=== PATIENT | male | born 1940 | race Caucasian/White ===

== ENCOUNTER 2017-03-22 10:55 | Inpatient (IN) | payer MEDICARE, BC ==
--- NOTE | 2017-03-21 15:53 | PREOPHP ---
DATE OF ADMISSION: 03/22/2017 Patient to have surgery with Dr. Alexandre Birmingham at [facility] on 03/22/2017. CONSULTATION REQUESTED BY: Dr. Birmingham for medical evaluation and clearance of a 76-year-old medhat sanchez about to undergo surgery. Thank you, Dr. Birmingham, for allowing us to participate in the care of this patient. HISTORY OF PRESENT ILLNESS: Benoit Parra, a 76-year-old gentleman with history of back iss ues for a while, is currently being admitted for correction of the above. In terms of his past medi kwabena and surgical history, medically speaking, had prostate cancer which was treated with radiation. Surgically had inguinal hernias bilateral right and left repairs, carpal tunnel surgery right and l eft wrists as well as a [id number] surgery. He has had no other medical hospitalizations, no ot her surgeries. Has not broken any big bones. MEDICATIONS: He is currently taking the following medications: 1. Metoprolol ER 25 mg a day. 2. Flomax 0.4 mg a day. 3. Gabapentin 300 mg at bedtime. 4. Celexa 20 mg a day. 5. Baby Aspirin 81 mg daily, which he stopped a week before this surgery. ALLERGIES: HE IS NOT ALLERGIC TO ANY MEDICATIONS. SOCIAL HISTORY: The patient is , has 2 daughters and 4 grandchildren. He does not smoke or drink alcohol or coffee. Has no difficulty sleeping at night. 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 FAMILY HISTORY: Both parents are . Father at age 65 of a stroke, had hypertension. M other at age 80, unknown specific cause. There is a family history of cancer, hypertension, stroke, as well as kidney issues. REVIEW OF SYSTEMS HEENT: Periodic tension headaches. CARDIORESPIRATORY: Denies any chest pain or shortness of breath. GASTROINTESTINAL: No melena or hematemesis. GENITOURINARY: No urgency, frequency. MUSCULOSKELETAL: Positive for back issues. NEUROPSYCHIATRIC: Unremarkable. GENERAL HEALTH: As above. PHYSICAL EXAMINATION: VITAL SIGNS: The patient's blood pressure was 120/70, pulse was 63 and regular, respirations were 1 8, temperature 97.9, height 5 feet 5 inches, weight 129 pounds. GENERAL: The patient was noted to be a well-developed, well-nourished male, alert and cooperative, in no apparent acute distress, oriented to time, place and person. HEAD, EARS, EYES, NOSE AND THROAT: Head was atraumatic. Eyes: Pupils were equal, reactive to ligh t and accommodation. Fundi were benign. Tympanic membranes were unremarkable. Nose was negative. Mouth was unremarkable. Fair oral hygiene was present. NECK: Supple without any rigidity. Trachea was midline. Thyroid was within normal limits. Neck v eins were flat. Carotid pulses were equal. No bruits were heard. BACK: Unremarkable. CHEST: Symmetrical. BREASTS AND AXILLARY: Did not reveal any masses. LUNGS: Clear to percussion and auscultation. HEART: PMI is fifth intercostal space at the midclavicular line. Regular sinus rhythm was noted. No significant murmurs, rubs or gallops being elicited. ABDOMEN: Soft, good bowel sounds were noted. No significant organomegaly, masses, or tenderness. Scars from prior surgery were noted. GENITALIA: Normal male uncircumcised external genitalia. RECTAL AND PROSTATIC: Exam up to date per PCP. EXTREMITIES: Did not reveal any clubbing, edema or cyanosis. Peripheral pulses were physiologic. SKIN: Moist and warm without any eruptions. No gross lymphadenopathy was noted. NEUROLOGIC: Grossly intact. IMPRESSION 1. Lumbar disk disease particularly L4-L5. 2. Hypertension. 3. Prostate cancer, status post radiation therapy. 4. Chronic pain syndrome. 5. Stable health. DISCUSSION: Review of laboratory and other data revealed the following: The patient's chemistry pa todd including electrolytes, creatinine, liver function test, magnesium and calcium were normal. CO2 was at 34, minimally elevated, random glucose 108, BUN 24, probably because patient had not drank e nough fluid. CBC, UA, PT and PTT were basically normal. The patient's EKG revealed extensive ST-T wave changes as well as a sinus bradycardia, question of ischemia. The patient is under the care of a dresser tender and we are awaiting cardiac clearance on him or a note from his dresser tender. The p atient's chest x-ray was normal as well without any acute infiltrates or acute cardiopulmonary banda es being noted. His bladder residual was 100+ mL, for which he takes Flomax and probably secondary to swelling of his prostate post-radiation therapy for his prostate cancer. Dr. Birmingham, I see no contraindication in this patient undergoing current proposed surgery under d esired form of anesthesia. I feel he is a suitable candidate at this particular point in time. Jyoti uld any medical problems arise during his stay at [facility], we will be more than happy to follow him up at the appropriate times. Thank you again, Dr. Birmingham, for allowing us to participate in the care of this patient. Dictated By: JUMANA ROGER/HAROLDO Conf#: [id number] DID#: [id number]
[2017-03-22] VITALS (22 sets, daily range): BP systolic 114–146; BP diastolic 60–90; PULSE 55–88; RESP 16–21; Ht 165.1 cm; Wt 52.2 kg
[~2017-03-22] VITALS: Ht 165.1 cm; Wt 52.2 kg
[~2017-03-22 10:55] MED LIST: ALBUMIN HUMAN 5% 250 ML INJ ONE; ATROPINE 1 MG/10 ML SYRINGE IV PRN; DIPHENHYDRAMINE 50 MG INJ IV PRN; EPHEDrine SULFATE 50 MG/5 ML SYG IV PRN; FENTAnyl 50 MCG/ML VIAL IV PRN; HYDROmorphONE (0.2 MG/ML) 10ML SYG IV PRN; LABETALOL HCL 20MG INJ IV PRN; MEPERIDINE 25 MG INJ IV PRN; MIDAZOLAM 1 MG/ML 2 ML INJ IV PRN; ONDANSETRON 4 MG INJ IV PRN; OXYCODONE/ACETAMINOPHEN (5/325) TAB PO PRN; hydrALAzine 20 MG INJ IV PRN; morphine (1 MG/ML) 10ML SYRINGE IV PRN
[2017-03-22] MEDS ORDERED: METO-335 PO (11:23)
[2017-03-22] MEDS ORDERED: CITA20TA11 PO (11:24)
[2017-03-22] MEDS ORDERED: TAMS-14 PO (11:24)
[2017-03-22] MEDS ORDERED: ASPI-664 PO (11:25)
--- NOTE | 2017-03-22 11:38 | HPN ---
Date/Time of Note Date/Time of Note DATE: 03/22/17 TIME: 11:38 Interval H&P Admission Note Pt. seen H&P reviewed: No system changes JEAN-PIERRE SHERMAN MD Mar 22, 2017 11:38
[2017-03-22] MEDS ORDERED: BETAMET NA PHOS/AC(6 MG/ML) 5ML INJ ONE (11:53)
[2017-03-22] MEDS ORDERED: POLYMYXIN/BACITRACIN 1L IRRIG ONE (11:53)
[2017-03-22] MEDS ORDERED: GELATIN SIZE 100 SPONGE ONE (11:53)
[2017-03-22] MEDS ORDERED: THROMBIN 5000 UNIT VIAL ONE (11:53)
[2017-03-22] MEDS ORDERED: BUPIVACAINE 0.25%/EPI (SDV) 30 ML INJ ONE (11:53)
--- NOTE | 2017-03-22 11:57 | OPR ---
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 Left sided L4-5 partial laminectomy, medial facetectomy, and foraminotomy 2. Durotomy repair SURGEON: Jean-Pierre Sherman MD ANESTHESIA: General endotracheal ESTIMATED BLOOD LOSS: Minimal SURGICAL INDICATION: The patient is a 76 year-old male who presents with an increasing history of left lower extremity pain with weakness. The patient was unable to ambulate significant distances secondary to their pain and left lower extremity weakness. The patient had failed conservative treatment. Risks, benefits, and alternatives to a decompressive procedure including but not exclusive of risks of bleeding, infection, nerve injury, cauda equina syndrome, iatrogenic instability requiring future fusion, dural tear, myocardial infarction, stroke, pulmonary embolism were explained to the patient, and he wished to proceed. DESCRIPTION OF TECHNIQUE: The patient was identified in the preoperative area and taken to the operating room. Rapid induction of general endotracheal anesthesia was performed. Patient was given 2 g of cefazolin for prophylaxis. The patient was then placed in the prone position on the Jose Guadalupe frame on a Earle table with all bony prominences well padded. The back was prepped and draped in usual sterile manner. Using a spinal needle and intraoperative fluoroscopy, the L4-5 level was clearly identified. The skin was injected using 0.25% Marcaine with epinephrine. Longitudinal midline incision was then created using a 10 blade. Further dissection through soft tissue was performed using electrocautery down to the left L4 spinous processes. Dissection was taken down the left side of the lamina and over the facet joint capsule. A self-retaining retractor was applied. Again, intraoperative fluoroscopy confirmed the level. The microscope was brought into use for microdissection. The high-speed bur was used to thin the caudal aspect of the left L4 lamina. Kerrison rongeurs were then used to resect a small portion of the lamina, the medial facet and the bone overlying the foramen. Ligamentum flavum was also resected using the Kerrison rongeurs. Care was taken to protect the thecal sac throughout the decompressive procedure. Upon meticulous dissection a durotomy measuring 1-2 mm was noted. The dura was noted to be adherent to the ligamentum and facet capsule. This was repaired using 4-0 neurolon in a running locking fashion. A valsalva at 40 mmHg was performed and did not show any persistent leak. Palpation with a ball-tip probe did not reveal any further stenosis in the central, subarticular, or foraminal areas. The exiting left L4 nerve root and traversing L5 nerve roots were both directly visualized and noted to be decompressed. The cephalad and caudad extent of the decompression were also confirmed using ball-tip probes and intraoperative fluoroscopy. The wound was irrigated copiously using normal saline. Meticulous attention was paid toward hemostasis using bipolar cautery, FloSeal, Gelfoam and thrombin. Care was taken to remove all FloSeal and Gelfoam and thrombin prior to wound closure. A dural patch and durocele were also applied prior to closure in the area of the repaired durotomy.The fascia was then closed using 1 Vicryl in interrupted fashion. Subcutaneous tissue was closed using 2-0 Vicryl in interrupted fashion. Skin was closed using a running 4-0 Monocryl stitch. The wound was dressed using Dermabond, sterile 4x4 gauze and Tegaderm. The patient was returned to the supine position. They were extubated immediately postoperatively and taken to the recovery room in stable condition. Complications: Durotomy Procedure Date: Mar 22, 2017 Preoperative Diagnosis POSTOPERATIVE DIAGNOSES: L4-5 grade 1 degenerative spondylolisthesis with Left greater than right spinal stenosis with Left L5 radiculopathy Postoperative Diagnosis POSTOPERATIVE DIAGNOSES: L4-5 grade 1 degenerative spondylolisthesis with Left greater than right spinal stenosis with Left L5 radiculopathy Operation/Procedure Performed 1. Left sided L4-5 partial laminectomy, medial facetectomy, and foraminotomy 2. Durotomy repair Surgeon see signature line Web Design Instructor None Anesthesia Type: general Estimated Blood Loss: none Transfusion none Specimen none Grafts/Implants none Complications none Pt Condition Post Procedure: stable Disposition: PACU Procedure Description The patient was identified in the preoperative area and taken to the operating room. Rapid induction of general endotracheal anesthesia was performed. Patient was given 2 g of cefazolin for prophylaxis. The patient was then placed in the prone position on the Jose Guadalupe frame on a Earle table with all bony prominences well padded. The back was prepped and draped in usual sterile manner. Using a spinal needle and intraoperative fluoroscopy, the L4-5 level was clearly identified. The skin was injected using 0.25% Marcaine with epinephrine. Longitudinal midline incision was then created using a 10 blade. Further dissection through soft tissue was performed using electrocautery down to the left L4 spinous processes. Dissection was taken down the left side of the lamina and over the facet joint capsule. A self-retaining retractor was applied. Again, intraoperative fluoroscopy confirmed the level. The microscope was brought into use for microdissection. The high-speed bur was used to thin the caudal aspect of the left L4 lamina. Kerrison rongeurs were then used to resect a small portion of the lamina, the medial facet and the bone overlying the foramen. Ligamentum flavum was also resected using the Kerrison rongeurs. Care was taken to protect the thecal sac throughout the decompressive procedure. Upon meticulous dissection a durotomy measuring 1-2 mm was noted. The dura was noted to be adherent to the ligamentum and facet capsule. This was repaired using 4-0 neurolon in a running locking fashion. A valsalva at 40 mmHg was performed and did not show any persistent leak. Palpation with a ball-tip probe did not reveal any further stenosis in the central, subarticular, or foraminal areas. The exiting left L4 nerve root and traversing L5 nerve roots were both directly visualized and noted to be decompressed. The cephalad and caudad extent of the decompression were also confirmed using ball-tip probes and intraoperative fluoroscopy. The wound was irrigated copiously using normal saline. Meticulous attention was paid toward hemostasis using bipolar cautery, FloSeal, Gelfoam and thrombin. Care was taken to remove all FloSeal and Gelfoam and thrombin prior to wound closure. A dural patch and durocele were also applied prior to closure in the area of the repaired durotomy.The fascia was then closed using 1 Vicryl in interrupted fashion. Subcutaneous tissue was closed using 2-0 Vicryl in interrupted fashion. Skin was closed using a running 4-0 Monocryl stitch. The wound was dressed using Dermabond, sterile 4x4 gauze and Tegaderm. The patient was returned to the supine position. They were extubated immediately postoperatively and taken to the recovery room in stable condition. JEAN-PIERRE SHERMAN MD Mar 22, 2017 11:57
[2017-03-22] MEDS ORDERED: GLYCOPYRROLATE 0.4 MG INJ ONE (12:12)
[2017-03-22] MEDS ORDERED: NEOSTIGMINE 3 MG/3 ML SYRINGE ONE (12:12)
[2017-03-22] MEDS ORDERED: PROPOFOL 20 ML ONE (12:12)
[2017-03-22] MEDS ORDERED: CEFAZOLIN 1 GM INJ ONE (12:12)
[2017-03-22] MEDS ORDERED: ROCURONIUM 50 MG INJ ONE (12:12)
[2017-03-22] MEDS ORDERED: ONDANSETRON 4 MG INJ ONE (12:13)
[2017-03-22] MEDS ORDERED: DEXAMETHASONE 4 MG/ML 1 ML INJ ONE (12:13)
[2017-03-22] MEDS ORDERED: MIDAZOLAM 1 MG/ML 2 ML INJ ONE (12:13)
[2017-03-22] MEDS ORDERED: MIDAZOLAM 1 MG/ML 2 ML INJ IV PRN (13:30)
[2017-03-22] MEDS ORDERED: TRIMETHOBENZAMIDE 100 MG/ML VIAL IM PRN (13:30)
[2017-03-22] MEDS ORDERED: OXYCODONE/ACETAMINOPHEN (5/325) TAB PO PRN ×2 (13:30)
[2017-03-22] MEDS ORDERED: IPRATROPIUM (NEB) 0.5 MG/2.5 ML AMP HHN PRN (13:30)
[2017-03-22] MEDS ORDERED: DIPHENHYDRAMINE 50 MG INJ IV PRN (13:30)
[2017-03-22] MEDS ORDERED: hydrALAzine 20 MG INJ IV PRN (13:30)
[2017-03-22] MEDS ORDERED: MEPERIDINE 25 MG INJ IV PRN (13:30)
[2017-03-22] MEDS ORDERED: FENTAnyl 50 MCG/ML VIAL IV PRN ×3 (13:30)
[2017-03-22] MEDS ORDERED: LABETALOL HCL 20MG INJ IV PRN (13:30)
[2017-03-22] MEDS ORDERED: ALBUTEROL 0.083% (NEB) 2.5 MG/3 ML AMP HHN PRN (13:30)
[2017-03-22] MEDS ORDERED: ONDANSETRON 4 MG INJ IV PRN ×2 (13:30→16:30)
[2017-03-22] MEDS ORDERED: EPHEDrine SULFATE 50 MG/5 ML SYG IV PRN (13:30)
[2017-03-22] MEDS ORDERED: HYDROmorphONE (0.2 MG/ML) 10ML SYG IV PRN ×3 (13:30)
[2017-03-22] MEDS ORDERED: THROMBIN(HUM PLAS)/FIBRINOG/CA 5 ML VIAL TOP ONE (13:58)
--- NOTE | 2017-03-22 16:01 | RADRPT ---
PROCEDURE: Intraoperative imaging of the lumbar spine with fluoroscopy. CLINICAL INDICATION: Back pain. Intraoperative. TECHNIQUE: 3 images of the lumbar spine were obtained in the operating room with an image intensif ier. No radiologist was in attendance. Fluoroscopy time is 8 seconds. COMPARISON: No prior study is available for comparison. FINDINGS: For the purposes of this report, the last apparent true disc level is considered to be L5-S1. Based on this, posterior surgical instruments are present at the lower L4 level and upper L5 level. IMPRESSION: 1. Intraoperative imaging of the lumbar spine. RPTAT: QQ .Familia Wong MD, MD Date Time Electronically viewed and signed by .Familia Wong MD, on 03/22/2017 16:01 .R/
[2017-03-22] MEDS ORDERED: NACL 0.9% 3 ML SYG IV SCH (16:30)
[2017-03-22] MEDS ORDERED: PROCHLORPERAZINE 10 MG TAB PO PRN (16:30)
[2017-03-22] MEDS ORDERED: NALOXONE (0.4 MG/ML) INJ IV PRN (16:30)
[2017-03-22] MEDS ORDERED: ACETAMINOPHEN 325 MG TAB PO PRN (16:30)
[2017-03-22] MEDS ORDERED: LACTATED RINGER'S 1,000 ML IV ONE (17:30)
--- NOTE | 2017-03-22 17:32 | CONS ---
Date/Time of Note Date/Time of Note DATE: 03/22/17 TIME: 17:24 Consult Date/Type/Reason Admit Date/Time 03/22/2017 Initial Consult Date 03/19/2017 Type of Consultation: internal medicine consult Reason for Consultation pre-op medical clearance and evaluation. Ordering Provider: JEAN-PIERRE SHERMAN MD Subjective alert in recovery room no complaints Objective Vital Signs Date Time Temp Pulse Resp B/P Pulse Ox O2 Delivery O2 Flow Rate FiO2 03/22/17 16:39 98.2 03/22/17 11:51 55 16 128/76 97 Room Air Exam vss stable heent negative lungs cleat heart regulkar rhythm Results/Medications Medications Current Medications Cefazolin Sodium (Ancef 1 Gm/50 ml (Pmx)) 50 ml @ 100 mls/hr Q6 IVPB ; Start 03/22/17 at 18:00; Stop 03/23/17 at 12:29; Status UNV Prochlorperazine (Compazine) 10 mg Q4H PRN PO NAUSEA AND/OR VOMITING; Start at 16:30; Status UNV Ondansetron HCl (Zofran Inj) 4 mg Q6H PRN IV NAUSEA AND/OR VOMITING; Start at 16:30; Status UNV Acetaminophen (Tylenol Tab) 650 mg Q4H PRN PO TEMP GREATER THAN 101F OR ARTIS; Start 03/22/17 at 16:30; Status UNV Naloxone HCl (Narcan) 0.2 mg Q2M PRN IV RR 8 BREATHS/MIN OR LESS; Start at 16:30; Status UNV Morphine Sulfate (morphine) 1 mg Q4H PRN IV PAIN LEVEL 8-10; Start 03/22/17 at 16:30; Status UNV Citalopram Hydrobromide (Celexa) 20 mg DAILY PO ; Start 03/23/17 at 09:00; Status UNV Metoprolol Succinate (Toprol Xl) 25 mg DAILY PO ; Start 03/23/17 at 09:00; Status UNV Tamsulosin HCl (Flomax) 0.4 mg DAILY PO ; Start 03/23/17 at 09:00; Status UNV Assessment/Plan Chief Complaint/Hosp Course post op question urinary output urine looks clear non concentrated Problems: Additional Assessment/Plan plan reorder pre op medicines---2)fluid challenge lactated ringers 3)renal consult 4)chem 7 and cbc after 500 cc of fluid JUMANA DODD MD Mar 22, 2017 17:32
[2017-03-22] MEDS: CEFAZOLIN 1 GM/50 ML (PMX) 50 ML IVPB SCH (18:00)
[2017-03-22] MEDS ORDERED: CEFAZOLIN 1 GM/50 ML (PMX) 50 ML IVPB ONE (18:15)
[2017-03-22 19:31] LABS: ALBUMIN 2.9 g/dl (3.3-4.9); ALBUMIN/GLOBULIN RATIO 1.2; CALCIUM 8.4 mg/dl (8.4-10.2); POTASSIUM 3.7 mmol/L (3.5-5.1); TOTAL PROTEIN 5.3 g/dl (6.1-8.1)
[2017-03-22 19:37] LABS: ABNORMAL IP MESSAGE 1; HEMATOCRIT 36.1 % (42.0-52.0); HEMOGLOBIN 12.7 g/dl (14.0-18.0); MEAN CORPUSCULAR HEMOGLOBIN 32.4 pg (29.0-33.0); MEAN CORPUSCULAR HGB CONC 35.2 g/dl (32.0-37.0); MEAN CORPUSCULAR VOLUME 92.1 fl (82.0-101.0); MEAN PLATELET VOLUME 9.1 fl (7.4-10.4); PLATELET COUNT 170 10^3/UL (140-415); POSITIVE DIFF @See below; RED BLOOD COUNT 3.92 10^6/ul (4.70-6.10); RED CELL DISTRIBUTION WIDTH 13.3 % (11.5-14.5); WHITE BLOOD COUNT 10.8 10^3/ul (4.8-10.8)
--- NOTE | 2017-03-22 20:24 | CONS ---
DATE OF ADMISSION: 03/22/2017 DATE OF CONSULTATION: RENAL CONSULTATION Thank you, Dr. Sherman and Dr. Banks, for asking me to participate in medical management of this patient. REASON FOR CONSULTATION: Low urine output. HISTORY OF PRESENT ILLNESS: This 76-year-old man is now postop a lumbar spine surgery by Dr. Sherman. The patient was having low back pain radiating to his left lower extremity preoperatively. He underwent a left-sided L4-5 partial laminectomy, medial facetectomy and foraminotomy. He also underwent a durotomy repair. The patient is now awake and alert. He denies any chest pain or shortness of breath. The patient does feel like he has a full bladder, although he does have a Granado catheter in place. The patient, in the recovery room, had a bladder scan done and had 65 mL of urine in his bladder. He now has 386 mL of urine in his bladder. He has a Granado catheter in place; however, it is not draining urine. The patient does have a history of prostate cancer and was treated with radiation January 2016 . The patient was seen preoperatively by Dr. Banks and cleared for surgery. The patient did have one episode of low blood pressure during surgery, but this was transient. The patient was given fluid and responded well. The patient has been given 2 liters of IV fluid in the recovery room and is getting another liter now on the surgical floor. CURRENT MEDICATIONS: The patient is on the following medications: 1. Metoprolol ER 25 mg a day. 2. Flomax 0.4 mg a day. 3. Gabapentin 300 mg at bedtime. 4. Celexa 20 mg a day. 5. Baby aspirin 81 mg a day, which was discontinued a week preoperatively. PAST MEDICAL HISTORY: 1. Hypertension 2 Prostate cancer s/p radiation therapy PAST SURGICAL HISTORY; 1. Bilateral inguinal hernia repair 2. Bilateral carpal tunnel syndrome repair 3. Fistula in ano surgery ALLERGIES: THE PATIENT HAS NO KNOWN MEDICATION ALLERGIES. SOCIAL HISTORY: He is . He has 2 daughters and 4 grandchildren. He does not smoke or drink alcohol. 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 FAMILY HISTORY: Both parents are . Father at age 65 of a stroke and he had hypertension. Mother at age 80 of unknown causes. There is a family history of cancer, hypertension, stroke, as well as kidney disease. PHYSICAL EXAMINATION: VITAL SIGNS: Temperature of 98.2, pulse of 85, respirations 18, blood pressure 135/90, O2 saturation 100% on 2 liters nasal cannula. HEAD: Normocephalic. EYES: Extraocular muscles intact. NOSE AND MOUTH: Normal. NECK: Supple. No neck vein distention. LUNGS: Clear to auscultation. HEART: Regular rhythm. No murmurs, gallops or rubs. ABDOMEN: Soft. There is some distention in the pelvic area consistent with a dilated urinary bladder EXTREMITIES: He has no lower extremity edema. LABORATORY DATA: The patient's laboratory test preoperatively showed a BUN of 24, serum creatinine of 1.2. CBC was normal. IMPRESSION: This patient presents now after surgery with a low urine output. He has a distended urinary bladder, despite having a Granado catheter. I recommended to the nurse that he try to place a larger bore Granado catheter. They will attempt to do that now. The patient has no prior history of kidney disease and the fact that he has a distended bladder is consistent with normal kidney function, but urinary obstruction causing the low urine output. The patient is otherwise comfortable without any other chest pain, shortness of breath. PLAN: 1. Try to place a larger bore Granado catheter. 2. Resume preoperative medications.Check labs in the morning . 3. Call urology consultation if unable to place Granado catheter. 4. I will follow patient along with you. Dictated By: GURVINDER GÓMEZ MD, ND/HAROLDO Conf#: [id number] DID#: [id number] CC: JEAN-PIERRE SHERMAN MD; [facility];*[facility]* [facility]
[2017-03-22 20:34] LABS: MONOCYTES % (M) 5 % (0-11); PLATELET ESTIMATE NORMAL
--- NOTE | 2017-03-22 21:52 | CONS ---
Date/Time of Note Date/Time of Note DATE: 03/22/17 TIME: 21:39 Assessment/Plan Assessment/Plan Chief Complaint/Hosp Course 76-year-old male is known to have a history of prostate cancer and is status post radiation therapy. He underwent lumbar laminectomy yesterday and had a small size Granado catheter 10 [place] in size which was not draining well. Most likely it was even not reaching the bladder. It was removed today and when he did urinate he had a high postvoid residual of over 300 mL. The nursing staff try to do straight cath for him unsuccessfully therefore a urological consultation was requested. I tried to insert a 16 [place] catheter. It was met with resistance in the proximal urethra and that is most likely related to a stiff urethra and prostatic scarring from the radiation. Therefore I did prep the genital area gave him 10 mL of 2% lidocaine jelly and waited for 5 minutes then I proceeded and did urethral dilatation with filiforms and followers up to #18 [place]. I tried to insert a 16 [place] catheter but that would not go into the bladder. Therefore I did use a 14 [place] coud catheter and that did go into the bladder well and the balloon was inflated was 10 mL of sterile water and the catheter connected to a drainage bag. We shall keep the Granado catheter in for 2 more days then discontinue it and see if he voids and empty his bladder. I will follow his urological problem with you I do thank you for allowing me to help in his care Problems: Consultation Date/Type/Reason Admit Date/Time 03/22/2017 Date of Consultation: Mar 22, 2017 Type of Consultation: Urology Reason for Consultation Urinary retention and difficulty passing a catheter by the nursing staff Referring Provider: GURVINDER GÓMEZ MD Hx of Present Illness 76-year-old man underwent a lumbar spine surgery by Dr. [place]. The patient was having low back pain radiating to his left lower extremity . He underwent a left-sided L4-5 partial laminectomy, medial facetectomy and foraminotomy. He also underwent a durotomy repair. He did have a small Granado catheter a 10 [place] size and was not draining well. That was removed. patient voided small amount but he had high postvoid residual and attempt to catheterize him were not successful, therefore a urological consultation was requested Constitutional: no complaints Eyes: no complaints ENT: no complaints Respiratory: no complaints Cardiovascular: no complaints Gastrointestinal: no complaints Genitourinary: other (Urge to urinate) Musculoskeletal: no complaints, other (Had back surgery yesterday) Neurologic: no complaints Psychological: no complaints Immunologic: no complaints Past Medical History Medical History: hypertension, other (Prostate cancer, underwent radiation therapy for it in August 2014) Past Surgical History Past Surgical Hx: other (Bilateral carpal tunnel surgery, anal fistula) Family History Significant Family History: cancer, hypertension, renal disease, other (Also history of strokes) Social History Alcohol Use: none Smoking Status: Never smoker Drug Use: none Other Social History , has 2 daughters, he was born in [facility] and came to the [facility] at age 27. 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 Exam/Review of Systems Vital Signs Vitals Vital Signs Date Time Temp Pulse Resp B/P Pulse Ox O2 Delivery O2 Flow Rate FiO2 03/22/17 19:21 98.2 91 18 124/60 100 03/22/17 18:48 Nasal Cannula 2.0 Exam Constitutional: alert Psych: no complaints Head: normocephalic Eyes: nl conjunctiva Neck: supple Respiratory: normal air movement Cardiovascular: No jugular venous distention (JVD) Gastrointestinal: soft Genitourinary - Male: nl penis, nl scrotum, other (He has blue dot and suprapubic area which is usually a marker for radiation) Extremities: No calf tenderness Results Result Diagram: 03/22/17 1844 03/22/17 1844 Results 24 hrs Laboratory Tests Test 03/22/17 18:44 White Blood Count 10.8 Red Blood Count 3.92 L Hemoglobin 12.7 L Hematocrit 36.1 L Mean Corpuscular Volume 92.1 Mean Corpuscular Hemoglobin 32.4 Mean Corpuscular Hemoglobin Concent 35.2 Red Cell Distribution Width 13.3 Platelet Count 170 Mean Platelet Volume 9.1 Neutrophils % Segmented Neutrophils % (Manual) 76 Band Neutrophils % (Manual) 14 H Lymphocytes % Lymphocytes % (Manual) 5 L Monocytes % Monocytes % (Manual) 5 Eosinophils % Basophils % Nucleated Red Blood Cells % 0.0 Neutrophils # Neutrophils # (Manual) 8.4 H Band Neutrophils # 1.5 H Absolute Lymphocytes (Manual) 0.5 L Lymphocytes # Monocytes # Absolute Monocytes (Manual) 0.5 Eosinophils # Basophils # Nucleated Red Blood Cells # Platelet Estimate NORMAL Sodium Level 135 Potassium Level 3.7 Chloride Level 100 Carbon Dioxide Level 29 Anion Gap 10 Blood Urea Nitrogen 21 H Creatinine 1.00 Glucose Level 100 Calcium Level 8.4 Total Bilirubin 1.0 Direct Bilirubin 0.00 Indirect Bilirubin 1.0 Aspartate Amino Transf (AST/SGOT) 14 L Alanine Aminotransferase (ALT/SGPT) 32 Alkaline Phosphatase 42 Total Protein 5.3 L Albumin 2.9 L Globulin 2.40 Albumin/Globulin Ratio 1.20 Medications Medications Current Medications Cefazolin Sodium (Ancef 1 Gm/50 ml (Pmx)) 50 ml @ 100 mls/hr Q6 IVPB ; Start 03/22/17 at 18:00; Stop 03/23/17 at 12:29; Status UNV Prochlorperazine (Compazine) 10 mg Q4H PRN PO NAUSEA AND/OR VOMITING; Start at 16:30; Status UNV Ondansetron HCl (Zofran Inj) 4 mg Q6H PRN IV NAUSEA AND/OR VOMITING; Start at 16:30; Status UNV Acetaminophen (Tylenol Tab) 650 mg Q4H PRN PO TEMP GREATER THAN 101F OR ARTIS; Start 03/22/17 at 16:30; Status UNV Naloxone HCl (Narcan) 0.2 mg Q2M PRN IV RR 8 BREATHS/MIN OR LESS; Start at 16:30; Status UNV Morphine Sulfate (morphine) 1 mg Q4H PRN IV PAIN LEVEL 8-10; Start 03/22/17 at 16:30; Status UNV Citalopram Hydrobromide (Celexa) 20 mg DAILY PO ; Start 03/23/17 at 09:00; Status UNV Metoprolol Succinate (Toprol Xl) 25 mg DAILY PO ; Start 03/23/17 at 09:00; Status UNV Tamsulosin HCl 0.4 mg 0.4 mg DAILY PO ; Start 03/23/17 at 09:00; Status UNV Lactated Ringer's 1,000 ml @ 1,000 mls/hr Q1H ONCE IV ; Start 03/22/17 at 17: 30; Stop 03/22/17 at 18:29; Status UNV Sodium Chloride (NS) 1,000 ml @ 125 mls/hr Q8H IV ; Start 03/22/17 at 17:30; Status PILLO CLAROS MD Mar 22, 2017 21:52
[2017-03-22] MEDS ORDERED: morphine 2 MG INJ IV PRN (22:00)
[2017-03-22] MEDS: SOD CHLORIDE 0.9% 1,000 ML IV SCH (22:17)
[2017-03-22] MEDS: morphine 2 MG INJ IV PRN (22:17)
[2017-03-23] MEDS: CEFAZOLIN 1 GM/50 ML (PMX) 50 ML IVPB SCH ×3 (00:02→11:31)
[2017-03-23] MEDS: SOD CHLORIDE 0.9% 1,000 ML IV SCH ×2 (01:30→02:56)
[2017-03-23 01:57] VITALS: BP 126/64; RESP 18
[2017-03-23] MEDS: traMADol 50 MG TAB PO PRN ×3 (04:40→12:51)
[2017-03-23 05:24] LABS: HEMATOCRIT 39.5 % (42.0-52.0); HEMOGLOBIN 13.8 g/dl (14.0-18.0)
[2017-03-23 05:48] LABS: CALCIUM 8.7 mg/dl (8.4-10.2); CREATININE 1.05 mg/dl (0.61-1.24); POTASSIUM 3.8 mmol/L (3.5-5.1)
[2017-03-23 07:52] VITALS: BP 139/69; RESP 18
--- NOTE | 2017-03-23 07:59 | CONS ---
Date/Time of Note Date/Time of Note DATE: 03/23/17 TIME: 07:54 Consult Date/Type/Reason Admit Date/Time Mar 22, 2017 at 16:15 Initial Consult Date 03/19/2017 Type of Consultation: internal medicine Reason for Consultation medical f/u and management Ordering Provider: JEAN-PIERRE SHERMAN MD Subjective complaining of back pain otherwise stable Objective Vital Signs Date Time Temp Pulse Resp B/P Pulse Ox O2 Delivery O2 Flow Rate FiO2 03/23/17 07:52 98.9 18 139/69 96 03/23/17 01:57 84 03/22/17 18:48 Nasal Cannula 2.0 Intake and Output 03/22/17 03/22/17 03/23/17 15:00 23:00 07:00 Intake Total 2050 ml 1540 ml Output Total 70 ml 1200 ml Balance 1980 ml 340 ml Exam vss heent negative lungs clear heart regular rhythm abdomen soft Results/Medications Result Diagram: 03/23/17 0445 03/23/17 0445 Results 24 hrs Laboratory Tests Test 03/22/17 18:44 03/23/17 04:45 White Blood Count 10.8 Red Blood Count 3.92 L Hemoglobin 12.7 L 13.8 L Hematocrit 36.1 L 39.5 L Mean Corpuscular Volume 92.1 Mean Corpuscular Hemoglobin 32.4 Mean Corpuscular Hemoglobin Concent 35.2 Red Cell Distribution Width 13.3 Platelet Count 170 Mean Platelet Volume 9.1 Neutrophils % Segmented Neutrophils % (Manual) 76 Band Neutrophils % (Manual) 14 H Lymphocytes % Lymphocytes % (Manual) 5 L Monocytes % Monocytes % (Manual) 5 Eosinophils % Basophils % Nucleated Red Blood Cells % 0.0 Neutrophils # Neutrophils # (Manual) 8.4 H Band Neutrophils # 1.5 H Absolute Lymphocytes (Manual) 0.5 L Lymphocytes # Monocytes # Absolute Monocytes (Manual) 0.5 Eosinophils # Basophils # Nucleated Red Blood Cells # Platelet Estimate NORMAL Sodium Level 135 139 Potassium Level 3.7 3.8 Chloride Level 100 103 Carbon Dioxide Level 29 28 Anion Gap 10 12 Blood Urea Nitrogen 21 H 20 Creatinine 1.00 1.05 Glucose Level 100 133 Calcium Level 8.4 8.7 Total Bilirubin 1.0 Direct Bilirubin 0.00 Indirect Bilirubin 1.0 Aspartate Amino Transf (AST/SGOT) 14 L Alanine Aminotransferase (ALT/SGPT) 32 Alkaline Phosphatase 42 Total Protein 5.3 L Albumin 2.9 L Globulin 2.40 Albumin/Globulin Ratio 1.20 Medications Current Medications Cefazolin Sodium (Ancef 1 Gm/50 ml (Pmx)) 50 ml @ 100 mls/hr Q6 IVPB Last administered on 03/23/17 06:09; Admin Dose 100 MLS/HR; Start 03/22/17 at 18: 00; Stop 03/23/17 at 12:29 Prochlorperazine (Compazine) 10 mg Q4H PRN PO NAUSEA AND/OR VOMITING; Start at 16:30 Ondansetron HCl (Zofran Inj) 4 mg Q6H PRN IV NAUSEA AND/OR VOMITING; Start at 16:30 Acetaminophen (Tylenol Tab) 650 mg Q4H PRN PO TEMP GREATER THAN 101F OR ARTIS; Start 03/22/17 at 16:30 Naloxone HCl (Narcan) 0.2 mg Q2M PRN IV RR 8 BREATHS/MIN OR LESS; Start at 16:30 Morphine Sulfate (morphine) 1 mg Q4H PRN IV PAIN LEVEL 8-10 Last administered on 03/22/17 22:17; Admin Dose 1 MG; Start 03/22/17 at 16:30 Citalopram Hydrobromide (Celexa) 20 mg DAILY PO ; Start 03/23/17 at 09:00 Metoprolol Succinate (Toprol Xl) 25 mg DAILY PO ; Start 03/23/17 at 09:00 Tamsulosin HCl 0.4 mg 0.4 mg DAILY PO ; Start 03/23/17 at 09:00 Sodium Chloride (NS) 1,000 ml @ 125 mls/hr Q8H IV Last administered on 02:56; Admin Dose 125 MLS/HR; Start 03/22/17 at 17:30 Tramadol HCl (Ultram) 50 mg Q4 PRN PO PAIN LEVEL 4-6 Last administered on 03/23 04:40; Admin Dose 50 MG; Start 03/22/17 at 22:00 Morphine Sulfate (morphine) 1 mg Q3 PRN IV PAIN LEVEL 7-10; Start 03/22/17 at 22:00 Assessment/Plan Chief Complaint/Hosp Course post op question urinary output urine looks clear non concentrated Problems: Additional Assessment/Plan patient medically stable urine output good vital signs and lab. all good. plan per thank you JUMANA Rubi MD Mar 23, 2017 07:59
[2017-03-23] MEDS: CITALOPRAM 20 MG TAB PO SCH (08:32)
[2017-03-23] MEDS: METOPROLOL (XL) 25 MG TAB PO SCH (08:32)
[2017-03-23] MEDS: TAMSULOSIN (SR) 0.4 MG CAP PO SCH (08:32)
--- NOTE | 2017-03-23 08:41 | PDOCDIS ---
Discharge Instructions DIAGNOSIS Discharge Diagnosis Left L4-5 stenosis CONDITION Patient Condition: Good HOME CARE INSTRUCTIONS: Diet Instructions: RegularSpecial Diet: CLEAR LIQUID ACTIVITY: Activity Restrictions: Avoid heavy lifting Bathing Restrictions: Shower FOLLOW UP/APPOINTMENTS Follow-up Plan 2 weeks with JEAN-PIERRE Draper MD Mar 23, 2017 08:41
--- NOTE | 2017-03-23 08:52 | CONS ---
Date/Time of Note Date/Time of Note DATE: 03/23/17 TIME: 08:43 Assessment/Plan Assessment/Plan Chief Complaint/Hosp Course 1. Patient is now one day postop lumbar spine surgery. 2. 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 Now with indwelling Granado catheter. I discussed his condition with Dr. Oliva and Dr. Sherman. Will leave Granado catheter in place today. Dr. Oliva will decide when to remove Granado catheter. If and when the Granado catheter is removed then patient can be discharged home. Problems: Consultation Date/Type/Reason Admit Date/Time Mar 22, 2017 at 16:15 Initial Consult Date 03/22/17 Type of Consultation: internal medicine Referring Provider: JEAN-PIERRE SHERMAN MD 24 HR Interval Summary Free Text/Dictation The patient is awake and alert this morning. He does have some low back incisional pain but otherwise feels well. He has a Granado catheter in place which is draining well. Exam/Review of Systems Vital Signs Vitals Vital Signs Date Time Temp Pulse Resp B/P Pulse Ox O2 Delivery O2 Flow Rate FiO2 03/23/17 07:52 98.9 18 139/69 96 03/23/17 01:57 84 03/22/17 18:48 Nasal Cannula 2.0 Intake and Output 03/22/17 03/22/17 03/23/17 15:00 23:00 07:00 Intake Total 2050 ml 1540 ml Output Total 70 ml 1200 ml Balance 1980 ml 340 ml Exam Constitutional: alert, oriented, well developed ENMT: nl external ears & nose, nl lips & teeth, nl nasal mucosa & septum Respiratory: clear to auscultation, normal air movement Cardiovascular: regular rate and rhythm Gastrointestinal: nl liver, spleen, non-tender, soft Musculoskeletal: nl extremities to inspection Results Result Diagram: 03/23/17 0445 03/23/17 0445 Results 24 hrs Laboratory Tests Test 03/22/17 18:44 03/23/17 04:45 White Blood Count 10.8 Red Blood Count 3.92 L Hemoglobin 12.7 L 13.8 L Hematocrit 36.1 L 39.5 L Mean Corpuscular Volume 92.1 Mean Corpuscular Hemoglobin 32.4 Mean Corpuscular Hemoglobin Concent 35.2 Red Cell Distribution Width 13.3 Platelet Count 170 Mean Platelet Volume 9.1 Neutrophils % Segmented Neutrophils % (Manual) 76 Band Neutrophils % (Manual) 14 H Lymphocytes % Lymphocytes % (Manual) 5 L Monocytes % Monocytes % (Manual) 5 Eosinophils % Basophils % Nucleated Red Blood Cells % 0.0 Neutrophils # Neutrophils # (Manual) 8.4 H Band Neutrophils # 1.5 H Absolute Lymphocytes (Manual) 0.5 L Lymphocytes # Monocytes # Absolute Monocytes (Manual) 0.5 Eosinophils # Basophils # Nucleated Red Blood Cells # Platelet Estimate NORMAL Sodium Level 135 139 Potassium Level 3.7 3.8 Chloride Level 100 103 Carbon Dioxide Level 29 28 Anion Gap 10 12 Blood Urea Nitrogen 21 H 20 Creatinine 1.00 1.05 Glucose Level 100 133 Calcium Level 8.4 8.7 Total Bilirubin 1.0 Direct Bilirubin 0.00 Indirect Bilirubin 1.0 Aspartate Amino Transf (AST/SGOT) 14 L Alanine Aminotransferase (ALT/SGPT) 32 Alkaline Phosphatase 42 Total Protein 5.3 L Albumin 2.9 L Globulin 2.40 Albumin/Globulin Ratio 1.20 Medications Medications Current Medications Cefazolin Sodium (Ancef 1 Gm/50 ml (Pmx)) 50 ml @ 100 mls/hr Q6 IVPB Last administered on 03/23/17 06:09; Admin Dose 100 MLS/HR; Start 03/22/17 at 18: 00; Stop 03/23/17 at 12:29 Prochlorperazine (Compazine) 10 mg Q4H PRN PO NAUSEA AND/OR VOMITING; Start at 16:30 Ondansetron HCl (Zofran Inj) 4 mg Q6H PRN IV NAUSEA AND/OR VOMITING; Start at 16:30 Acetaminophen (Tylenol Tab) 650 mg Q4H PRN PO TEMP GREATER THAN 101F OR ARTIS; Start 03/22/17 at 16:30 Naloxone HCl (Narcan) 0.2 mg Q2M PRN IV RR 8 BREATHS/MIN OR LESS; Start at 16:30 Morphine Sulfate (morphine) 1 mg Q4H PRN IV PAIN LEVEL 8-10 Last administered on 03/22/17 22:17; Admin Dose 1 MG; Start 03/22/17 at 16:30 Citalopram Hydrobromide (Celexa) 20 mg DAILY PO Last administered on 08:32; Admin Dose 20 MG; Start 03/23/17 at 09:00 Metoprolol Succinate (Toprol Xl) 25 mg DAILY PO Last administered on 08:32; Admin Dose 25 MG; Start 03/23/17 at 09:00 Tamsulosin HCl 0.4 mg 0.4 mg DAILY PO Last administered on 03/23/17 08:32; Admin Dose 0.4 MG; Start 03/23/17 at 09:00 Sodium Chloride (NS) 1,000 ml @ 125 mls/hr Q8H IV Last administered on 02:56; Admin Dose 125 MLS/HR; Start 03/22/17 at 17:30 Tramadol HCl (Ultram) 50 mg Q4 PRN PO PAIN LEVEL 4-6 Last administered on 03/23 08:32; Admin Dose 50 MG; Start 03/22/17 at 22:00 Morphine Sulfate (morphine) 1 mg Q3 PRN IV PAIN LEVEL 7-10; Start 03/22/17 at 22:00 GURVINDER GÓMEZ MD Mar 23, 2017 08:52
[2017-03-23] MEDS: morphine 2 MG INJ IV PRN (13:32)
[2017-03-23 14:56] VITALS: BP 129/62; RESP 18
[2017-03-23] MEDS ORDERED: DEXAMETHASONE 10 MG/ML 1 ML INJ IV ONE (15:00)
[2017-03-23] MEDS ORDERED: METHOCARBAMOL 500 MG TAB PO PRN (15:00)
--- NOTE | 2017-03-23 18:51 | CONS ---
Date/Time of Note Date/Time of Note DATE: 03/23/17 TIME: 18:47 Consult Date/Type/Reason Admit Date/Time Mar 22, 2017 at 16:15 Initial Consult Date 03/22/17 Type of Consultation: Urology Reason for Consultation Urinary retention Ordering Provider: JEAN-PIERRE SHERMAN MD Subjective Patient states that he is feeling better, he did ambulate today but he feels tired. He has less bladder spasms and the Granado catheter is draining clear urine Objective Vital Signs Date Time Temp Pulse Resp B/P Pulse Ox O2 Delivery O2 Flow Rate FiO2 03/23/17 14:56 98.7 59 18 129/62 96 03/22/17 18:48 Nasal Cannula 2.0 Intake and Output 03/22/17 03/22/17 03/23/17 15:00 23:00 07:00 Intake Total 2050 ml 1540 ml Output Total 70 ml 1200 ml Balance 1980 ml 340 ml Exam The patient is awake and alert his is at his bedside. The Granado catheter is draining clear urine. Results/Medications Result Diagram: 03/23/17 0445 03/23/17 0445 Results 24 hrs Laboratory Tests Test 03/23/17 04:45 Hemoglobin 13.8 L Hematocrit 39.5 L Sodium Level 139 Potassium Level 3.8 Chloride Level 103 Carbon Dioxide Level 28 Anion Gap 12 Blood Urea Nitrogen 20 Creatinine 1.05 Glucose Level 133 Calcium Level 8.7 Medications Current Medications Prochlorperazine (Compazine) 10 mg Q4H PRN PO NAUSEA AND/OR VOMITING; Start at 16:30 Ondansetron HCl (Zofran Inj) 4 mg Q6H PRN IV NAUSEA AND/OR VOMITING; Start at 16:30 Acetaminophen (Tylenol Tab) 650 mg Q4H PRN PO TEMP GREATER THAN 101F OR ARTIS; Start 03/22/17 at 16:30 Naloxone HCl (Narcan) 0.2 mg Q2M PRN IV RR 8 BREATHS/MIN OR LESS; Start at 16:30 Morphine Sulfate (morphine) 1 mg Q4H PRN IV PAIN LEVEL 8-10 Last administered on 03/23/17t 13:32; Admin Dose 1 MG; Start 03/22/17 at 16:30 Citalopram Hydrobromide (Celexa) 20 mg DAILY PO Last administered on 08:32; Admin Dose 20 MG; Start 03/23/17 at 09:00 Metoprolol Succinate (Toprol Xl) 25 mg DAILY PO Last administered on 08:32; Admin Dose 25 MG; Start 03/23/17 at 09:00 Tamsulosin HCl (Flomax) 0.4 mg DAILY PO Last administered on 03/23/17 08:32; Admin Dose 0.4 MG; Start 03/23/17 at 09:00 Tramadol HCl (Ultram) 50 mg Q4 PRN PO PAIN LEVEL 4-6 Last administered on 03/23 12:51; Admin Dose 50 MG; Start 03/22/17 at 22:00 Morphine Sulfate (morphine) 1 mg Q3 PRN IV PAIN LEVEL 7-10; Start 03/22/17 at 22:00 Methocarbamol (Robaxin) 500 mg TID PRN PO MUSCLE SPASMS Last administered on 16:33; Admin Dose 500 MG; Start 03/23/17 at 15:00 Assessment/Plan Chief Complaint/Hosp Course 76-year-old male is known to have a history of prostate cancer and is status post radiation therapy. He underwent lumbar laminectomy and had a small size Granado catheter 10 Filip[place] in size which was not draining well. Most likely it was even not reaching the bladder. It was removed and when he did urinate he had a high postvoid residual of over 300 mL. The nursing staff tried to do straight cath for him unsuccessfully therefore a urological consultation was requested. I tried to insert a 16 [place] catheter. It was met with resistance in the proximal urethra and that is most likely related to a stiff urethra and prostatic scarring from the radiation. I did dilate his urethra up to 18 Filip[place] yesterday and inserted a 14 Filip[place] coud catheter and that is draining very well. I will discontinue the catheter tomorrow morning and see if he does void and if he does not then we will have to insert a new catheter and connected to a leg bag. Problems: PILLO LONGO MD Mar 23, 2017 18:51
[2017-03-23 19:19] VITALS: BP 108/58; RESP 18
[2017-03-24] MEDS: traMADol 50 MG TAB PO PRN ×2 (02:14→08:38)
[2017-03-24 02:40] VITALS: BP 139/67; RESP 18
[2017-03-24 07:49] VITALS: BP 114/61; RESP 16
[2017-03-24] MEDS: TAMSULOSIN (SR) 0.4 MG CAP PO SCH (08:23)
[2017-03-24] MEDS: CITALOPRAM 20 MG TAB PO SCH (08:23)
[2017-03-24] MEDS: METOPROLOL (XL) 25 MG TAB PO SCH (08:23)
--- NOTE | 2017-03-24 08:54 | PN ---
Date/Time of Note Date/Time of Note DATE: 03/24/17 TIME: 08:52 Assessment/Plan VTE Prophylaxis VTE Prophylaxis Intervention: SCD's Lines/Catheters IV Catheter Type (from Nrs): Peripheral IV Urinary Cath still in place: No Reason Cath still needed: urinary retention Assessment/Plan Problems: (1) S/P lumbar laminectomy Onset Date: ~ 03/22/2017 Status: Acute Comment: He is recuperating postoperatively. He had pre-existing urethral issues which we are attempting to deal with. 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 Urology is assisting. (3) Essential hypertension Status: Chronic Comment: Adequate control (4) Prostate cancer Status: Chronic Comment: In remission at this time (5) Chronic pain syndrome Status: Chronic Comment: Noted and relatively stable using gabapentin. Subjective 24 Hr Interval Summary Free Text/Dictation Patient reports that he was able to urinate this morning a very small quantity with some sensation of burning. He also has not had a lot of ambulation. Constitutional: no complaints (Denies fevers chills or sweats) Respiratory: no complaints Cardiovascular: no complaints Gastrointestinal: no complaints Genitourinary: dysuria Exam/Review of Systems Vital Signs Vitals Vital Signs Date Time Temp Pulse Resp B/P Pulse Ox O2 Delivery O2 Flow Rate FiO2 03/24/17 07:49 98.2 67 16 114/61 100 03/22/17 18:48 Nasal Cannula 2.0 Intake and Output 03/23/17 03/23/17 03/24/17 15:00 23:00 07:00 Intake Total 650 ml 820 ml 600 ml Output Total 1200 ml 700 ml Balance 650 ml -380 ml -100 ml Exam Constitutional: alert, oriented Neck: non-tender, supple Respiratory: clear to auscultation, normal air movement Cardiovascular: nl pulses, regular rate and rhythm Results Result Diagram: 03/23/1744403/23/17444 Medications Medications Current Medications Prochlorperazine (Compazine) 10 mg Q4H PRN PO NAUSEA AND/OR VOMITING; Start at 16:30 Ondansetron HCl (Zofran Inj) 4 mg Q6H PRN IV NAUSEA AND/OR VOMITING; Start at 16:30 Acetaminophen (Tylenol Tab) 650 mg Q4H PRN PO TEMP GREATER THAN 101F OR ARTIS; Start 03/22/17 at 16:30 Naloxone HCl (Narcan) 0.2 mg Q2M PRN IV RR 8 BREATHS/MIN OR LESS; Start at 16:30 Morphine Sulfate (morphine) 1 mg Q4H PRN IV PAIN LEVEL 8-10 Last administered on 03/23/17 13:32; Admin Dose 1 MG; Start 03/22/17 at 16:30 Citalopram Hydrobromide (Celexa) 20 mg DAILY PO Last administered on 08:23; Admin Dose 20 MG; Start 03/23/17 at 09:00 Metoprolol Succinate (Toprol Xl) 25 mg DAILY PO Last administered on 08:23; Admin Dose 25 MG; Start 03/23/17 at 09:00 Tamsulosin HCl (Flomax) 0.4 mg DAILY PO Last administered on 03/24/17 08:23; Admin Dose 0.4 MG; Start 03/23/17 at 09:00 Tramadol HCl (Ultram) 50 mg Q4 PRN PO PAIN LEVEL 4-6 Last administered on 03/24 08:38; Admin Dose 50 MG; Start 03/22/17 at 22:00 Morphine Sulfate (morphine) 1 mg Q3 PRN IV PAIN LEVEL 7-10; Start 03/22/17 at 22:00 Methocarbamol (Robaxin) 500 mg TID PRN PO MUSCLE SPASMS Last administered on 16:33; Admin Dose 500 MG; Start 03/23/17 at 15:00 BERNARD COUCH MD Mar 24, 2017 08:54
--- NOTE | 2017-03-24 10:16 | CONS ---
Date/Time of Note Date/Time of Note DATE: 03/24/17 TIME: 10:12 Consult Date/Type/Reason Admit Date/Time Mar 22, 2017 at 16:15 Initial Consult Date 03/22/17 Type of Consultation: Urology Reason for Consultation Urinary retention, history of prostate cancer and urethral stricture Ordering Provider: JEAN-PIERRE SHERMAN MD Subjective Patient states that he is comfortable, the Granado was removed at 6:00, he voided 50 mL once . Objective Vital Signs Date Time Temp Pulse Resp B/P Pulse Ox O2 Delivery O2 Flow Rate FiO2 03/24/17 07:49 98.2 67 16 114/61 100 03/22/17 18:48 Nasal Cannula 2.0 Intake and Output 03/23/17 03/23/17 03/24/17 15:00 23:00 07:00 Intake Total 650 ml 820 ml 600 ml Output Total 1200 ml 700 ml Balance 650 ml -380 ml -100 ml Exam Abdomen is soft, bladder is not distended Results/Medications Result Diagram: 03/23/17 0445 03/23/17 0445 Medications Current Medications Prochlorperazine (Compazine) 10 mg Q4H PRN PO NAUSEA AND/OR VOMITING; Start at 16:30 Ondansetron HCl (Zofran Inj) 4 mg Q6H PRN IV NAUSEA AND/OR VOMITING; Start at 16:30 Acetaminophen (Tylenol Tab) 650 mg Q4H PRN PO TEMP GREATER THAN 101F OR ARTIS; Start 03/22/17 at 16:30 Naloxone HCl (Narcan) 0.2 mg Q2M PRN IV RR 8 BREATHS/MIN OR LESS; Start at 16:30 Morphine Sulfate (morphine) 1 mg Q4H PRN IV PAIN LEVEL 8-10 Last administered on 03/23/17 13:32; Admin Dose 1 MG; Start 03/22/17 at 16:30 Citalopram Hydrobromide (Celexa) 20 mg DAILY PO Last administered on 08:23; Admin Dose 20 MG; Start 03/23/17 at 09:00 Metoprolol Succinate (Toprol Xl) 25 mg DAILY PO Last administered on 08:23; Admin Dose 25 MG; Start 03/23/17 at 09:00 Tamsulosin HCl (Flomax) 0.4 mg DAILY PO Last administered on 03/24/17 08:23; Admin Dose 0.4 MG; Start 03/23/17 at 09:00 Tramadol HCl (Ultram) 50 mg Q4 PRN PO PAIN LEVEL 4-6 Last administered on 03/24 08:38; Admin Dose 50 MG; Start 03/22/17 at 22:00 Morphine Sulfate (morphine) 1 mg Q3 PRN IV PAIN LEVEL 7-10; Start 03/22/17 at 22:00 Methocarbamol (Robaxin) 500 mg TID PRN PO MUSCLE SPASMS Last administered on 16:33; Admin Dose 500 MG; Start 03/23/17 at 15:00 Dexamethasone (Decadron) 10 mg ONCE ONCE IV ; Start 03/24/17 at 10:30; Stop 03/24/17 at 10:31 Assessment/Plan Chief Complaint/Hosp Course 76-year-old male is known to have a history of prostate cancer and is status post radiation therapy. He underwent lumbar laminectomy . He had a Granado catheter that was removed this morning. He voided once about 50 mL. We will check his voiding and do bladder scan after each voiding and if it is low postvoid residual then he may be discharged. Problems: PILLO LONGO MD Mar 24, 2017 10:16
[2017-03-24] MEDS ORDERED: DEXAMETHASONE 10 MG/ML 1 ML INJ IV ONE (10:30)
[2017-03-24] MEDS: OXYCODONE/ACETAMINOPHEN (5/325) TAB PO PRN (13:02)
[2017-03-24 14:00] VITALS: BP 147/70; RESP 17
--- NOTE | 2017-03-24 14:27 | CONS ---
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 Comment: Appreciate Urology care; voiding well (2) Stenosis, spinal, lumbar Status: Chronic Comment: improved left lateral thi pain Qualifiers: Neurogenic claudication status: without neurogenic claudication Qualified Code: M48.061 - Spinal stenosis of lumbar region without neurogenic claudication Additional Assessment/Plan Doing well and ok for Rehab; no renal issues and will see prn Consultation Date/Type/Reason Admit Date/Time Mar 22, 2017 at 16:15 Initial Consult Date 03/22/17 Type of Consultation: renal Referring Provider: JEAN-PIERRE SHERMAN MD 24 HR Interval Summary Free Text/Dictation Catheter removed, voids with minimal dysuria. Renal function excellent. Constitutional: improved Exam/Review of Systems Vital Signs Vitals Vital Signs Date Time Temp Pulse Resp B/P Pulse Ox O2 Delivery O2 Flow Rate FiO2 03/24/17 07:49 98.2 67 16 114/61 100 03/22/17 18:48 Nasal Cannula 2.0 Intake and Output 03/23/17 03/23/17 03/24/17 15:00 23:00 07:00 Intake Total 650 ml 820 ml 600 ml Output Total 1200 ml 700 ml Balance 650 ml -380 ml -100 ml Exam Constitutional: alert Respiratory: clear to auscultation Cardiovascular: regular rate and rhythm Gastrointestinal: soft Genitourinary - Male: other (no cath) Results Result Diagram: 03/23/17 0445 03/23/175 Medications Medications Current Medications Prochlorperazine (Compazine) 10 mg Q4H PRN PO NAUSEA AND/OR VOMITING; Start at 16:30 Ondansetron HCl (Zofran Inj) 4 mg Q6H PRN IV NAUSEA AND/OR VOMITING; Start at 16:30 Acetaminophen (Tylenol Tab) 650 mg Q4H PRN PO TEMP GREATER THAN 101F OR ARTIS; Start 03/22/17 at 16:30 Naloxone HCl (Narcan) 0.2 mg Q2M PRN IV RR 8 BREATHS/MIN OR LESS; Start at 16:30 Morphine Sulfate (morphine) 1 mg Q4H PRN IV PAIN LEVEL 8-10 Last administered on 03/23/17 13:32; Admin Dose 1 MG; Start 03/22/17 at 16:30 Citalopram Hydrobromide (Celexa) 20 mg DAILY PO Last administered on 08:23; Admin Dose 20 MG; Start 03/23/17 at 09:00 Metoprolol Succinate (Toprol Xl) 25 mg DAILY PO Last administered on 08:23; Admin Dose 25 MG; Start 03/23/17 at 09:00 Tamsulosin HCl (Flomax) 0.4 mg DAILY PO Last administered on 03/24/17 08:23; Admin Dose 0.4 MG; Start 03/23/17 at 09:00 Tramadol HCl (Ultram) 50 mg Q4 PRN PO PAIN LEVEL 4-6 Last administered on 03/24 08:38; Admin Dose 50 MG; Start 03/22/17 at 22:00 Morphine Sulfate (morphine) 1 mg Q3 PRN IV PAIN LEVEL 7-10; Start 03/22/17 at 22:00 Methocarbamol (Robaxin) 500 mg TID PRN PO MUSCLE SPASMS Last administered on 16:33; Admin Dose 500 MG; Start 03/23/17 at 15:00 Oxycodone/ Acetaminophen (Percocet (5/ 325)) 1 tab Q6H PRN PO PAIN Last administered on 03/24/17 13:02; Admin Dose 1 TAB; Start 03/24/17 at 12:30 RADHA DOUGLASS MD Mar 24, 2017 14:27
[2017-03-24 19:10] VITALS: BP 152/81; RESP 20
[2017-03-25 02:35] VITALS: BP 159/74; RESP 20
[2017-03-25 08:33] VITALS: BP 134/74; RESP 18
[2017-03-25] MEDS: CITALOPRAM 20 MG TAB PO SCH (08:55)
[2017-03-25] MEDS: TAMSULOSIN (SR) 0.4 MG CAP PO SCH (08:55)
--- NOTE | 2017-03-25 08:59 | PN ---
Date/Time of Note Date/Time of Note DATE: 03/25/17 TIME: 08:55 Assessment/Plan VTE Prophylaxis VTE Prophylaxis Intervention: SCD's Lines/Catheters IV Catheter Type (from [facility] Peripheral IV Urinary Cath still in place: No Assessment/Plan Problems: (1) S/P lumbar laminectomy Onset Date: ~ 03/22/2017 Status: Acute Comment: He is progressing well without evidence of postoperative complications. He has had a point where he could be transferred to the acute rehabilitation unit. 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 (3) Essential hypertension Status: Chronic Comment: His systolic pressures are still little bit high. Continue the metoprolol and added lisinopril 10 mg once a day Subjective 24 Hr Interval Summary Free Text/Dictation Patient reports he was up with physical therapy yesterday. He is voiding. Please see the nursing notes regarding his postvoid residuals which are all less than 40 cc Constitutional: no complaints Respiratory: no complaints Cardiovascular: no complaints Gastrointestinal: no complaints Genitourinary: no complaints Exam/Review of Systems Vital Signs Vitals Vital Signs Date Time Temp Pulse Resp B/P Pulse Ox O2 Delivery O2 Flow Rate FiO2 03/25/17 08:33 98.1 59 18 134/74 99 03/22/17 18:48 Nasal Cannula 2.0 Intake and Output 03/24/17 03/24/17 03/25/17 15:00 23:00 07:00 Intake Total 1000 ml 800 ml Output Total 275 ml 475 ml 981 ml Balance -275 ml 525 ml -181 ml Exam Constitutional: alert, oriented Neck: non-tender, supple Respiratory: clear to auscultation, normal air movement Cardiovascular: nl pulses, regular rate and rhythm Results Result Diagram: 03/23/1744403/23/17444 Medications Medications Current Medications Prochlorperazine (Compazine) 10 mg Q4H PRN PO NAUSEA AND/OR VOMITING; Start at 16:30 Ondansetron HCl (Zofran Inj) 4 mg Q6H PRN IV NAUSEA AND/OR VOMITING; Start at 16:30 Acetaminophen (Tylenol Tab) 650 mg Q4H PRN PO TEMP GREATER THAN 101F OR ARTIS; Start 03/22/17 at 16:30 Naloxone HCl (Narcan) 0.2 mg Q2M PRN IV RR 8 BREATHS/MIN OR LESS; Start at 16:30 Morphine Sulfate (morphine) 1 mg Q4H PRN IV PAIN LEVEL 8-10 Last administered on 03/23/17 13:32; Admin Dose 1 MG; Start 03/22/17 at 16:30 Citalopram Hydrobromide (Celexa) 20 mg DAILY PO Last administered on 08:23; Admin Dose 20 MG; Start 03/23/17 at 09:00 Metoprolol Succinate (Toprol Xl) 25 mg DAILY PO Last administered on 08:23; Admin Dose 25 MG; Start 03/23/17 at 09:00 Tamsulosin HCl (Flomax) 0.4 mg DAILY PO Last administered on 03/24/17 08:23; Admin Dose 0.4 MG; Start 03/23/17 at 09:00 Tramadol HCl (Ultram) 50 mg Q4 PRN PO PAIN LEVEL 4-6 Last administered on 03/24 08:38; Admin Dose 50 MG; Start 03/22/17 at 22:00 Morphine Sulfate (morphine) 1 mg Q3 PRN IV PAIN LEVEL 7-10; Start 03/22/17 at 22:00 Methocarbamol (Robaxin) 500 mg TID PRN PO MUSCLE SPASMS Last administered on 16:33; Admin Dose 500 MG; Start 03/23/17 at 15:00 Oxycodone/ Acetaminophen (Percocet (5/ 325)) 1 tab Q6H PRN PO PAIN Last administered on 03/24/17 13:02; Admin Dose 1 TAB; Start 03/24/17 at 12:30 BERNARD COUCH MD Mar 25, 2017 08:59
[2017-03-25] MEDS ORDERED: LISINOPRIL 10 MG TAB PO SCH (09:00)
[2017-03-25] MEDS: METOPROLOL (XL) 25 MG TAB PO SCH (09:37)
--- NOTE | 2017-03-25 12:00 | CONS ---
Date/Time of Note Date/Time of Note DATE: 03/25/17 TIME: 11:57 Consult Date/Type/Reason Admit Date/Time Mar 24, 2017 at 14:26 Initial Consult Date 03/22/17 Type of Consultation: Urology Reason for Consultation Urinary retention Ordering Provider: JEAN-PIERRE SHERMAN MD Subjective Patient states that he is feeling better he is urinating easier. Initially he did have mild dysuria as he was urinating but now he is better and denies any stinging or burning on urination. Objective Vital Signs Date Time Temp Pulse Resp B/P Pulse Ox O2 Delivery O2 Flow Rate FiO2 03/25/17 08:33 98.1 59 18 134/74 99 03/22/17 18:48 Nasal Cannula 2.0 Intake and Output 03/24/17 03/24/17 03/25/17 15:00 23:00 07:00 Intake Total 1000 ml 800 ml Output Total 275 ml 475 ml 981 ml Balance -275 ml 525 ml -181 ml Exam Patient is awake and alert. He states he did walk around. He has voided multiple times and the volume voided was 200-300 mL. And the postvoid residual is not high to require any straight cath. We will continue his present treatment and patient was accepted for rehab and we will see him there for any urological problem Results/Medications Result Diagram: 03/23/1744403/23/17444 Medications Current Medications Prochlorperazine (Compazine) 10 mg Q4H PRN PO NAUSEA AND/OR VOMITING; Start at 16:30 Ondansetron HCl (Zofran Inj) 4 mg Q6H PRN IV NAUSEA AND/OR VOMITING; Start at 16:30 Acetaminophen (Tylenol Tab) 650 mg Q4H PRN PO TEMP GREATER THAN 101F OR ARTIS; Start 03/22/17 at 16:30 Naloxone HCl (Narcan) 0.2 mg Q2M PRN IV RR 8 BREATHS/MIN OR LESS; Start at 16:30 Morphine Sulfate (morphine) 1 mg Q4H PRN IV PAIN LEVEL 8-10 Last administered on 03/23/17t 13:32; Admin Dose 1 MG; Start 03/22/17 at 16:30 Citalopram Hydrobromide (Celexa) 20 mg DAILY PO Last administered on 08:55; Admin Dose 20 MG; Start 03/23/17 at 09:00 Metoprolol Succinate (Toprol Xl) 25 mg DAILY PO Last administered on 09:37; Admin Dose 25 MG; Start 03/23/17 at 09:00 Tamsulosin HCl (Flomax) 0.4 mg DAILY PO Last administered on 03/25/17 08:55; Admin Dose 0.4 MG; Start 03/23/17 at 09:00 Tramadol HCl (Ultram) 50 mg Q4 PRN PO PAIN LEVEL 4-6 Last administered on 03/24 08:38; Admin Dose 50 MG; Start 03/22/17 at 22:00 Morphine Sulfate (morphine) 1 mg Q3 PRN IV PAIN LEVEL 7-10; Start 03/22/17 at 22:00 Methocarbamol (Robaxin) 500 mg TID PRN PO MUSCLE SPASMS Last administered on 16:33; Admin Dose 500 MG; Start 03/23/17 at 15:00 Oxycodone/ Acetaminophen (Percocet (5/ 325)) 1 tab Q6H PRN PO PAIN Last administered on 03/24/17 13:02; Admin Dose 1 TAB; Start 03/24/17 at 12:30 Lisinopril (Zestril) 10 mg DAILY PO Last administered on 03/25/17 09:37; Admin Dose 10 MG; Start 03/25/17 at 09:00 Assessment/Plan Chief Complaint/Hosp Course 76-year-old male is known to have a history of prostate cancer and is status post radiation therapy. He underwent lumbar laminectomy . He had a Granado catheter that was removed this morning. He voided once about 50 mL. We will check his voiding and do bladder scan after each voiding and if it is low postvoid residual then he may be discharged. Problems: PILLO LONGO MD Mar 25, 2017 12:00
[2017-03-25] MEDS: OXYCODONE/ACETAMINOPHEN (5/325) TAB PO PRN (12:03)
== END 2017-03-25 13:04 | DRG 519 ==
LOC: SDS 10:55 → REC 16:15 → MS1 18:00 → SDS 18:03 → OBSVTOIN 03-24 14:26
PROVIDERS: ADMIT Orthopaedic Surgery; ATTEND Orthopaedic Surgery
PROC: 00UT0JZ Supplement Spinal Meninges with Synthetic Substitute, Open Approach (ICD-10-PCS; 2017-03-22)
PROC: 0T7D7ZZ Dilation of Urethra, Via Natural or Artificial Opening (ICD-10-PCS; 2017-03-22)
PROC: 01NB0ZZ Release Lumbar Nerve, Open Approach (ICD-10-PCS; principal; 2017-03-22 12:00)
DX: M43.16 Spondylolisthesis, lumbar region (principal); G97.41 Accidental puncture or laceration of dura during a procedure; N13.8 Other obstructive and reflux uropathy; I10 Essential (primary) hypertension; G89.4 Chronic pain syndrome; Z85.46 Personal history of malignant neoplasm of prostate; T66.XXXS Radiation sickness, unspecified, sequela; N36.8 Other specified disorders of urethra; M48.061 Spinal stenosis, lumbar region without neurogenic claudication; M54.16 Radiculopathy, lumbar region; Y65.8 Other specified misadventures during surgical and medical care; Y92.234 Operating room of hospital as the place of occurrence of the external cause
CPT/HCPCS: 72100; 80048; 80053; 85014; 85018; 85025; 87086; 97116; 97163; 97530; A4310; C9250; G0378; J0690; J0702; J1100; J1644; J2250; J2270; J2405; J2710; J3010; J7030; J7120; P9045

== ENCOUNTER 2017-03-25 13:21 | Inpatient (IN) | END 2017-04-05 13:39 | disposition home health service (06) | DRG 560 ==